=== PATIENT | male | born 1950 | race Caucasian/White ===

== ENCOUNTER 2024-04-23 13:52 | Inpatient (IN) | payer BC ==
[~2024-04-23] VITALS: Ht 167.6 cm; Wt 75.3 kg
[~2024-04-23 13:52] MED LIST: BALS60OI TP
[2024-04-23] MEDS ORDERED: VANCOMYCIN 1 GM /D5W 250 ML PB IV ONE (14:14)
[2024-04-23] MEDS: IV NS 0.9% 1,000 ML BAG IV ONE (14:20)
[2024-04-23] MEDS: PIPERACILLIN /TAZOBACTAM 3.375 G in IV D5W 50 ML IV ONE (14:41)
[2024-04-23] MEDS: VANCOMYCIN 1 GM in IV D5W 250 ML IV ONE (14:41)
[2024-04-23] MEDS ORDERED: PIPERACI/TAZO 3.375GM/D5W 50ML PB IV ONE (14:42)
[2024-04-23] MEDS ORDERED: MAGN400O6 PO (14:58)
[2024-04-23] MEDS ORDERED: POLY17PO4 PO (14:58)
[2024-04-23] MEDS ORDERED: ASPI-1420 PO (14:58)
[2024-04-23] MEDS ORDERED: AMIN30LI25 PO (14:58)
[2024-04-23] MEDS ORDERED: ACET325T53 PO (14:58)
[2024-04-23] MEDS ORDERED: ASCO500T10 PO (14:58)
[2024-04-23] MEDS ORDERED: APIX5TAB PO (14:58)
[2024-04-23] MEDS ORDERED: SENN8.6T19 PO (14:58)
[2024-04-23] MEDS ORDERED: SODI100037 PO (14:58)
[2024-04-23] MEDS ORDERED: NA P133E RC (14:58)
[2024-04-23] MEDS ORDERED: INSU100I40 SQ (14:58)
[2024-04-23] MEDS ORDERED: FAMO20TA29 PO (14:58)
[2024-04-23] MEDS ORDERED: TAMS-12 PO (14:58)
[2024-04-23] MEDS ORDERED: ACET-637 PO (14:58)
[2024-04-23] MEDS ORDERED: MULT-213 PO (14:58)
[2024-04-23] MEDS ORDERED: MIRT-90 PO (14:58)
[2024-04-23] MEDS ORDERED: ACET-73 PO (14:58)
[2024-04-23] MEDS ORDERED: BISA10SU11 RC (14:58)
[2024-04-23] MEDS ORDERED: METO25TA4 PO (14:58)
[2024-04-23] MEDS ORDERED: FERR325T23 PO (14:58)
[2024-04-23 15:06] LABS: BASOPHILS % (AUTO) 0.5 % (0.0-2.0); HEMATOCRIT 28 % (39-51); HEMOGLOBIN 9.4 g/dL (13.5-17.5); LYMPHOCYTES % (AUTO) 14.3 % (20.0-44.0); MEAN CORPUSCULAR HEMOGLOBIN 31 PG (26.0-33.0); MEAN CORPUSCULAR HGB CONC 33 g/dl (31.0-36.0); MEAN CORPUSCULAR VOLUME 93 fL (80-96); MONOCYTES # (AUTO) 0.5 K/uL (0.1-1.30); MONOCYTES % (AUTO) 6.9 % (2.0-12.0); NEUTROPHILS # (AUTO) 5.4 K/uL (1.8-8.9); NEUTROPHILS % (AUTO) 78.3 % (43.0-81.0); PLATELET COUNT (AUTO) 241 K/uL (150-450); RED BLOOD CELL COUNT(AUTO) 3.04 MIL/uL (4.5-6.0); RED CELL DISTRIBUTION WIDTH 19.7 % (11.5-15.0); WHITE BLOOD COUNT (AUTO) 6.9 K/uL (4.3-11.0)
[2024-04-23 15:15] LABS: CALCIUM, SERUM 8.4 mg/dL (8.5-10.1); CARBON DIOXIDE 27 mmol/L (21-32); CHLORIDE 99 mmol/L (98-107); CREATININE 1.2 mg/dL (0.6-1.3); GLUCOSE 123 mg/dL (74-106); POTASSIUM 3.7 mmol/L (3.5-5.1); SODIUM SERUM 134 mmol/L (136-145); UREA NITROGEN, BLOOD 22 mg/dL (7-18)
[2024-04-23 15:20] LABS: ALANINE AMINOTRANSFERASE 13 U/L (12-78); ALBUMIN 2.4 g/dL (3.4-5.0); ALKALINE PHOSPHATASE 63 U/L (46-116); ASPARTATE AMINOTRANSFERASE 19 U/L (15-37); BILIRUBIN,DIRECT 0.1 mg/dL (0.0-0.2); BILIRUBIN,TOTAL 0.2 mg/dL (0.2-1.0); TOTAL PROTEIN, SERUM 7.4 g/dL (6.4-8.2)
[2024-04-23 15:22] LABS: LACTIC ACID 1.3 mmol/L (0.4-2.0)
[2024-04-23 15:48] LABS: INR 1.29 (0.91-1.10); PARTIAL THROMBOPLASTIN TIME 37.2 SEC (24.3-34.3); PROTHROMBIN TIME 13.4 SECS (9.2-11.1)
[2024-04-23 16:47] LABS: APPEARANCE,URINE CLOUDY (CLEAR); COLOR,URINE YELLOW (YELLOW)
[2024-04-23 16:48] LABS: PROTEIN,URINE 1+ mg/dl (NEGATIVE); UGLUCOSE NEGATIVE (NEGATIVE)
[2024-04-23 16:49] LABS: BILIRUBIN,URINE NEGATIVE (NEGATIVE); BLOOD, URINE 3+ Ery/uL (NEGATIVE); KETONES,URINE 1+ mg/dL (NEGATIVE); UROBILINOGEN,URINE 0.2 EU/dL (0.2)
[2024-04-23 16:50] LABS: LEUKOCYTE ESTERASE ,URINE 3+ (NEGATIVE); NITRITE, URINE NEGATIVE (NEGATIVE)
[2024-04-23] MEDS: KETOROLAC TROMETHAMINE 15 MG/ML VIAL IV ONE (17:00)
[2024-04-23 17:15] LABS: ADD URINE CULTURE YES; BACTERIA,URINE 3+ /HPF (None Seen); MUCUS,URINE Few /LPF (None Seen); RBC,URINE 81-100 /HPF (0-2); WBC,URINE 81-100 /HPF (0-3)
[2024-04-23] MEDS ORDERED: NA PHOS,M-B/NA PHOS,DI-BA 1 EA ENEMA RC PRN (18:30)
[2024-04-23] MEDS ORDERED: MAG HYDROX/AL HYDROX/SIMETH 30 ML UDC PO PRN (18:30)
[2024-04-23] MEDS ORDERED: ONDANSETRON HCL/PF 4 MG/2 ML VIAL IVP PRN (18:30)
[2024-04-23] MEDS ORDERED: Z GUARD REMEDY 4 OZ OINT TP PRN (18:30)
[2024-04-23] MEDS ORDERED: BISACODYL SUPP (10 MG) 10 MG/SUPP.RECT SUPP.RECT RC PRN (18:30)
[2024-04-23] MEDS ORDERED: MAGNESIUM HYDROXIDE 30 ML UDC PO PRN ×2 (18:30)
[2024-04-23] MEDS ORDERED: ZOLPIDEM TARTRATE 5 MG TABLET PO PRN (18:30)
[2024-04-23] MEDS ORDERED: ACETAMINOPHEN 325 MG TABLET PO PRN (18:30)
[2024-04-23] MEDS ORDERED: DEXTROSE 50%-WATER 50 ML DISP.SYRIN IV PRN (18:30)
[2024-04-23] MEDS ORDERED: ACETAMINOPHEN ES 500 MG TABLET PO PRN (18:30)
[2024-04-23] MEDS: IV NS 0.9% 1,000 ML IV PRN (19:56)
[2024-04-23 20:04] VITALS: BP 76/55; TEMP 99.5; O2SAT 95
[2024-04-23] MEDS: IV NS 0.9% 500 ML BAG IV ONE (20:21)
[2024-04-23 21:15] VITALS: BP 90/50
[2024-04-23] MEDS: MIRTAZAPINE 15 MG TABLET PO SCH (21:34)
[2024-04-23] MEDS: PIPERACILLIN /TAZOBACTAM 3.375 G in IV D5W 100 ML IV SCH (21:34)
[2024-04-23] MEDS: SENNOSIDES 8.6 MG TABLET PO SCH (21:34)
[2024-04-23] MEDS: BLOOD SUGAR DIAGNOSTIC 1 EACH STRIP VI SCH (21:43)
[2024-04-23 21:45] VITALS: BP 122/72
[2024-04-24] VITALS: BP 95/60; TEMP 97.5; O2SAT 96
[2024-04-24 04:00] VITALS: BP 96/54; TEMP 97.3; O2SAT 98
[2024-04-24 06:35] LABS: BASOPHILS # (AUTO) 0.1 K/uL (0.0-0.2); BASOPHILS % (AUTO) 0.9 % (0.0-2.0); EOSINOPHILS % (AUTO) 0.6 % (0.0-6.0); HEMATOCRIT 25 % (39-51); HEMOGLOBIN 8.4 g/dL (13.5-17.5); LYMPHOCYTES # (AUTO) 1.1 K/uL (0.8-4.8); LYMPHOCYTES % (AUTO) 19.9 % (20.0-44.0); MEAN CORPUSCULAR HEMOGLOBIN 31 PG (26.0-33.0); MEAN CORPUSCULAR HGB CONC 33 g/dl (31.0-36.0); MEAN CORPUSCULAR VOLUME 94 fL (80-96); MONOCYTES # (AUTO) 0.3 K/uL (0.1-1.30); MONOCYTES % (AUTO) 5.6 % (2.0-12.0); NEUTROPHILS # (AUTO) 4.2 K/uL (1.8-8.9); PLATELET COUNT (AUTO) 207 K/uL (150-450); RED BLOOD CELL COUNT(AUTO) 2.67 MIL/uL (4.5-6.0); WHITE BLOOD COUNT (AUTO) 5.8 K/uL (4.3-11.0)
[2024-04-24 06:49] LABS: CARBON DIOXIDE 27 mmol/L (21-32); CHLORIDE 104 mmol/L (98-107); CREATININE 1.4 mg/dL (0.6-1.3); GLUCOSE 98 mg/dL (74-106); MAGNESIUM 1.6 mg/dL (1.8-2.4); PHOSPHORUS 3.5 mg/dL (2.5-4.9); POTASSIUM 3.6 mmol/L (3.5-5.1); SODIUM SERUM 137 mmol/L (136-145); UREA NITROGEN, BLOOD 23 mg/dL (7-18)
[2024-04-24 08:00] VITALS: BP 129/72; TEMP 98.1; O2SAT 97
[2024-04-24] MEDS: POLYETHYLENE GLYCOL 3350 17 GM POWD.PACK PO SCH (08:49)
[2024-04-24] MEDS: MULTIVIT W/MINERALS 1 TAB TABLET PO SCH (08:49)
[2024-04-24] MEDS: TAMSULOSIN 0.4 MG CAP.SR.24H PO SCH (08:49)
[2024-04-24] MEDS: ASPIRIN EC 81 MG TABLET.DR PO SCH (08:50)
[2024-04-24] MEDS: ASCORBIC ACID 500 MG TABLET PO SCH (08:50)
[2024-04-24] MEDS: PANTOPRAZOLE 40 MG TABLET.DR PO SCH (08:50)
[2024-04-24] MEDS: FERROUS SULFATE (325 MG) 325 MG/TAB TABLET PO SCH (08:50)
[2024-04-24] MEDS: SODIUM CHLORIDE 1000 MG TABLET PO SCH (08:50)
[2024-04-24] MEDS: METOPROLOL SUCCINATE 25 MG TAB.SR.24H PO SCH (08:52)
[2024-04-24] MEDS: APIXABAN 5 MG TABLET PO SCH (08:52)
[2024-04-24] MEDS: PROSOURCE / PROSTAT (PYXIS) 30 ML UDC PO SCH (08:53)
[2024-04-24] MEDS ORDERED: BALSAM PERU TP SCH (09:00)
[2024-04-24] MEDS ORDERED: CASTOR OIL TP SCH (09:00)
[2024-04-24] MEDS: MAGNESIUM OXIDE 400 MG TABLET PO ONE (11:05)
[2024-04-24 16:00] VITALS: BP 101/59; TEMP 98.2; O2SAT 99
[2024-04-24 20:00] VITALS: BP 121/75; TEMP 98.4; O2SAT 96
[2024-04-24 20:17] VITALS: BP 121/75; TEMP 98.4; O2SAT 96
[2024-04-24] MEDS: *INSULIN REGULAR(HUMULIN R)HUM 100 UNIT/ML VIAL SQ PRN (21:29)
[2024-04-25] MEDS: INSULIN REGULAR, HUMAN 100 UNIT/ML 3 ML VIAL SQ PRN (06:31)
[2024-04-25 06:40] LABS: EOSINOPHILS # (AUTO) 0.1 K/uL (0.0-0.7); EOSINOPHILS % (AUTO) 3.1 % (0.0-6.0); HEMATOCRIT 24 % (39-51); LYMPHOCYTES # (AUTO) 0.7 K/uL (0.8-4.8); LYMPHOCYTES % (AUTO) 16.4 % (20.0-44.0); MEAN CORPUSCULAR HEMOGLOBIN 31 PG (26.0-33.0); MEAN CORPUSCULAR HGB CONC 33 g/dl (31.0-36.0); MEAN CORPUSCULAR VOLUME 93 fL (80-96); MONOCYTES # (AUTO) 0.2 K/uL (0.1-1.30); MONOCYTES % (AUTO) 5.6 % (2.0-12.0); NEUTROPHILS # (AUTO) 3.3 K/uL (1.8-8.9); NEUTROPHILS % (AUTO) 73.9 % (43.0-81.0); PLATELET COUNT (AUTO) 222 K/uL (150-450); RED CELL DISTRIBUTION WIDTH 19.8 % (11.5-15.0); WHITE BLOOD COUNT (AUTO) 4.4 K/uL (4.3-11.0)
[2024-04-25 07:00] VITALS: BP 139/76; TEMP 98.6; O2SAT 99
[2024-04-25 07:05] LABS: ALANINE AMINOTRANSFERASE 9 U/L (12-78); ALKALINE PHOSPHATASE 51 U/L (46-116); ASPARTATE AMINOTRANSFERASE 24 U/L (15-37); BILIRUBIN,TOTAL 0.2 mg/dL (0.2-1.0); CALCIUM, SERUM 8.1 mg/dL (8.5-10.1); CHLORIDE 104 mmol/L (98-107); GLUCOSE 95 mg/dL (74-106); MAGNESIUM 1.7 mg/dL (1.8-2.4); PHOSPHORUS 2.6 mg/dL (2.5-4.9); POTASSIUM 3.6 mmol/L (3.5-5.1); SODIUM SERUM 135 mmol/L (136-145); TOTAL PROTEIN, SERUM 6.1 g/dL (6.4-8.2); UREA NITROGEN, BLOOD 22 mg/dL (7-18)
[2024-04-25 07:11] LABS: CARBON DIOXIDE 24 mmol/L (21-32)
[2024-04-25 07:25] LABS: CREATINE KINASE, TOTAL 45 U/L (39-308)
[2024-04-25] MEDS: GLUCERNA SHAKE 237 ML CAN PO SCH (08:42)
[2024-04-25] MEDS: MAGNESIUM OXIDE 400 MG TABLET PO ONE (10:36)
[2024-04-25 16:00] VITALS: BP 154/87; TEMP 97.7; O2SAT 97
[2024-04-25 20:15] VITALS: BP 146/79; TEMP 98.4; O2SAT 99
[2024-04-25 20:51] VITALS: BP 146/79; TEMP 98.4; O2SAT 99
[2024-04-26 06:25] LABS: BASOPHILS # (AUTO) 0.1 K/uL (0.0-0.2); BASOPHILS % (AUTO) 1.2 % (0.0-2.0); EOSINOPHILS # (AUTO) 0.3 K/uL (0.0-0.7); EOSINOPHILS % (AUTO) 6.3 % (0.0-6.0); HEMATOCRIT 26 % (39-51); HEMOGLOBIN 8.5 g/dL (13.5-17.5); LYMPHOCYTES # (AUTO) 1.4 K/uL (0.8-4.8); LYMPHOCYTES % (AUTO) 30.7 % (20.0-44.0); MEAN CORPUSCULAR HEMOGLOBIN 31 PG (26.0-33.0); MEAN CORPUSCULAR HGB CONC 33 g/dl (31.0-36.0); MEAN CORPUSCULAR VOLUME 93 fL (80-96); MONOCYTES # (AUTO) 0.4 K/uL (0.1-1.30); MONOCYTES % (AUTO) 8.1 % (2.0-12.0); NEUTROPHILS # (AUTO) 2.4 K/uL (1.8-8.9); NEUTROPHILS % (AUTO) 53.7 % (43.0-81.0); PLATELET COUNT (AUTO) 251 K/uL (150-450); RED BLOOD CELL COUNT(AUTO) 2.79 MIL/uL (4.5-6.0); WHITE BLOOD COUNT (AUTO) 4.4 K/uL (4.3-11.0)
[2024-04-26 06:37] LABS: CALCIUM, SERUM 8.2 mg/dL (8.5-10.1); CARBON DIOXIDE 24 mmol/L (21-32); CHLORIDE 106 mmol/L (98-107); GLUCOSE 91 mg/dL (74-106); MAGNESIUM 1.8 mg/dL (1.8-2.4); POTASSIUM 3.7 mmol/L (3.5-5.1); SODIUM SERUM 137 mmol/L (136-145); UREA NITROGEN, BLOOD 18 mg/dL (7-18)
[2024-04-26 08:00] VITALS: BP 135/98; TEMP 98.1; O2SAT 98
[2024-04-26 11:09] LABS: PTH, INTACT 10 pg/mL (15-65)
[2024-04-26 16:00] VITALS: BP 137/78; TEMP 97.9; O2SAT 98
[2024-04-26 20:00] VITALS: BP 146/90; TEMP 98.2; O2SAT 96
[2024-04-26] MEDS: VANCOMYCIN 1 GM in IV D5W 250ml IV ONE (23:23)
[2024-04-27 06:09] LABS: EOSINOPHILS # (AUTO) 0.5 K/uL (0.0-0.7); HEMATOCRIT 27 % (39-51); HEMOGLOBIN 8.5 g/dL (13.5-17.5); LYMPHOCYTES # (AUTO) 1.5 K/uL (0.8-4.8); LYMPHOCYTES % (AUTO) 34.2 % (20.0-44.0); MEAN CORPUSCULAR HEMOGLOBIN 30 PG (26.0-33.0); MEAN CORPUSCULAR HGB CONC 32 g/dl (31.0-36.0); MEAN CORPUSCULAR VOLUME 95 fL (80-96); MONOCYTES # (AUTO) 0.4 K/uL (0.1-1.30); MONOCYTES % (AUTO) 8.2 % (2.0-12.0); NEUTROPHILS # (AUTO) 2.1 K/uL (1.8-8.9); NEUTROPHILS % (AUTO) 46.6 % (43.0-81.0); PLATELET COUNT (AUTO) 253 K/uL (150-450); RED BLOOD CELL COUNT(AUTO) 2.81 MIL/uL (4.5-6.0); RED CELL DISTRIBUTION WIDTH 19.9 % (11.5-15.0); WHITE BLOOD COUNT (AUTO) 4.5 K/uL (4.3-11.0)
[2024-04-27 06:32] LABS: CALCIUM, SERUM 8.7 mg/dL (8.5-10.1); CARBON DIOXIDE 21 mmol/L (21-32); CHLORIDE 106 mmol/L (98-107); GLUCOSE 89 mg/dL (74-106); MAGNESIUM 1.8 mg/dL (1.8-2.4); PHOSPHORUS 3.4 mg/dL (2.5-4.9); POTASSIUM 3.8 mmol/L (3.5-5.1); SODIUM SERUM 137 mmol/L (136-145); UREA NITROGEN, BLOOD 20 mg/dL (7-18)
[2024-04-27 07:30] VITALS: BP 138/70; TEMP 97.7; O2SAT 99
[2024-04-27] MEDS: VANCOMYCIN 1 GM /D5W 250 ML PB IV ONE (07:31)
[2024-04-27] MEDS: VANCOMYCIN 750 MG in IV D5W 250 ML IV SCH (11:21)
[2024-04-27 16:00] VITALS: BP 149/80; TEMP 97.6; O2SAT 99
[2024-04-27 20:00] VITALS: BP 139/84; TEMP 98.2; O2SAT 99
[2024-04-28 00:32] VITALS: BP 139/84; TEMP 98.2
[2024-04-28 06:33] LABS: CALCIUM, SERUM 8.6 mg/dL (8.5-10.1); CARBON DIOXIDE 24 mmol/L (21-32); CHLORIDE 103 mmol/L (98-107); CREATININE 0.9 mg/dL (0.6-1.3); GLUCOSE 80 mg/dL (74-106); POTASSIUM 4.1 mmol/L (3.5-5.1); SODIUM SERUM 135 mmol/L (136-145); UREA NITROGEN, BLOOD 17 mg/dL (7-18)
[2024-04-28 08:00] VITALS: BP 145/82; TEMP 97.3; O2SAT 100
[2024-04-28 08:22] VITALS: BP 145/82
[2024-04-28 10:11] LABS: *SPE A/G RATIO 0.7 (0.7-1.7); *SPE ALBUMIN 2.3 g/dL (2.9-4.4); *SPE ALPHA-1-GLOBULIN 0.3 g/dL (0.0-0.4); *SPE ALPHA-2-GLOBULIN 0.7 g/dL (0.4-1.0); *SPE BETA GLOBULIN 0.8 g/dL (0.7-1.3); *SPE GLOBULIN, TOTAL 3.3 g/dL (2.2-3.9); *SPE M-SPIKE Not Observed g/dL (Not Observed); *SPE PROTEIN TOTAL 5.6 g/dL (6.0-8.5); *SPEGAMMA GLOBULIN 1.4 g/dL (0.4-1.8)
[2024-04-28] MEDS ORDERED: ERTA1VIA4 IJ (11:31)
== END 2024-04-28 21:12 | DRG 463 ==
LOC: ER 13:55 → TELE 18:47 → MED 04-24 11:39
PROVIDERS: ADMIT Student in an Organized Health Care Education/Training Program; ATTEND Student in an Organized Health Care Education/Training Program
DX: N39.0 Urinary tract infection, site not specified (principal); N17.0 Acute kidney failure with tubular necrosis; G92.9 Unspecified toxic encephalopathy; E44.0 Moderate protein-calorie malnutrition; E87.1 Hypo-osmolality and hyponatremia; B96.20 Unspecified Escherichia coli [E. coli] as the cause of diseases classified elsewhere; E11.51 Type 2 diabetes mellitus with diabetic peripheral angiopathy without gangrene; D64.9 Anemia, unspecified; I48.91 Unspecified atrial fibrillation; Z89.611 Acquired absence of right leg above knee; E86.0 Dehydration; E86.9 Volume depletion, unspecified; E83.42 Hypomagnesemia; K21.9 Gastro-esophageal reflux disease without esophagitis; Z20.822 Contact with and (suspected) exposure to COVID-19; F32.A Depression, unspecified; N40.0 Benign prostatic hyperplasia without lower urinary tract symptoms; Z79.4 Long term (current) use of insulin; Z79.01 Long term (current) use of anticoagulants; Z79.82 Long term (current) use of aspirin; Z79.899 Other long term (current) drug therapy; Z16.12 Extended spectrum beta lactamase (ESBL) resistance; I10 Essential (primary) hypertension; M89.8X9 Other specified disorders of bone, unspecified site; Z16.24 Resistance to multiple antibiotics; Z86.19 Personal history of other infectious and parasitic diseases; Z87.440 Personal history of urinary (tract) infections
CPT/HCPCS: 36415; 71045-TC; 80048-TC; 80053-TC; 80076-TC; 80202-TC; 81001; 82550-TC; 82962-TC; 83605-TC; 83735-TC; 83970; 84100-TC; 84155; 84165; 84443-TC; 84484-TC; 85025-TC; 85730-TC; 87040-TC; 87081-TC; 87086-TC; A4223; A6403; G0378; J1815; J1885; J2543; J3370; J3371; J7030; J7040; J7050; J7060